=== PATIENT | female | born 2000 | race Caucasian/White ===

== ENCOUNTER 2023-03-01 17:12 | Emergency (ER) | payer OTHER, SELFPAY ==
[2023-03-01 17:20] VITALS: BP 131/76; PULSE 92; RESP 18; TEMP 37.1; O2SAT 100
--- NOTE | 2023-03-01 17:31 | ED.ABDPAIN ---
HPI - Abdominal Pain General Stated Complaint: Abdomina Pain Time Seen by Provider: 03/01/23 17:31 Source: patient Mode of arrival: ambulatory Limitations: no limitations History of Present Illness HPI narrative: 23 yo F with no significant medical hx presents with c/o left lower ABD pain since yesterday. c/o nausea. No urinary symptoms. Having normal BMs. Last menstrual period Jul 2022. Periods have been abnormal. States pain getting progressively worse. Was told by telehealth nurse to go to an to rule out ruptures ovarian cyst. Reports hx of R ovarian cyst approx. 5 years ago. All systems reviewed and negative except as noted above. Related Data Home Medications Medication Instructions Recorded Confirmed No Home Medications 03/01/23 03/01/23 Allergies Allergy/AdvReac Type Severity Reaction Status Date / Time iohexol Allergy Intermediate Hives Verified 03/01/23 17:36 [From contrast - CT, X-RAY] Review of Systems Review of Systems: CONSTITUTIONAL: Denies fever, chills, or sweats. EYES: Denies visual changes, redness, or discharge. ENT: Denies rhinorrhea, congestion, sore throat, or otalgia. CARDIOVASCULAR: Denies chest pain, palpitations, or edema. RESPIRATORY: Denies cough or dyspnea. GASTROINTESTINAL: Reports left lower abdominal pain, nausea. Denies vomiting, or diarrhea. GENITOURINARY: Denies dysuria or hematuria. SKIN: Denies rash or itching. MUSCULOSKELETAL: Denies back pain, joint pain, or myalgia. NEUROLOGIC: Denies headache, numbness, or weakness. PSYCHIATRIC: Denies anxiety or depression. All other systems reviewed are negative, except as documented in HPI. PMFSH Comments At time of signature, agree with nursing past medical, surgical, social and family history. There is no relevant family history pertinent to the presenting complaint. Exam Narrative: GENERAL: This is a well-nourished, well-developed patient, in no apparent distress. HEAD: normocephalic, atraumatic. EYES: PERRL. Sclera clear/white. Vision is grossly intact. EARS: External ears normal NOSE: External nose normal NECK: Neck supple, non-tender without lymphadenopathy, masses or thyromegaly. CARDIOVASCULAR: Regular rate and rhythm without murmurs, gallops, or rubs. RESPIRATORY: Clear to auscultation. Breath sounds equal bilaterally. No wheezes, rales, or rhonchi. GASTROINTESTINAL: Abdomen soft, nondistended. Tenderness to left lower quadrant on palpation. Bowel sounds are active. No hepato-splenomegaly, or palpable masses. No guarding. SKIN: warm, Dry, intact with no suspicious lesions or rash, good texture and turgor. NEURO: awake, alert, and oriented to person, place and time. There were no obvious focal neurologic abnormalities. EXTREMITIES: No joint tenderness, effusion, or edema noted. Course Course Level of Care: Express Care Visit Vital Signs Vital signs: Vital Signs Temperature 37.1 C 03/01/23 17:20 Pulse Rate 92 03/01/23 17:20 Respiratory Rate 18 03/01/23 17:20 Blood Pressure 131/76 03/01/23 17:20 Pulse Oximetry 100 03/01/23 17:20 Oxygen Delivery Room Air 03/01/23 17:20 Temperature 37.1 C 03/01/23 17:20 Pulse Rate 92 03/01/23 17:20 Respiratory Rate 18 03/01/23 17:20 Blood Pressure 131/76 03/01/23 17:20 Pulse Oximetry 100 03/01/23 17:20 Oxygen Delivery Room Air 03/01/23 17:20 Reviewed MDM - Abdominal Pain MDM Narrative Medical decision making narrative: Recommend patient transfer to ER for imaging lower abdominal pain to further evaluate her pain. Patient does not want to go to ER at this time. States she wants to go home and talk with her parents about going. Reports history of ruptured ovarian cyst approximately 5 years ago and does not feel that she needs to go to the ER if this is what is happening again. Discussed risks with patient. Patient is aware of diagnosis, understands and agrees to treatment plan. Anticipatory guidance given. Taylor
== END 2023-03-01 17:45 | disposition left against medical advice (07) ==
PROVIDERS: Emergency Provider Nurse Practitioner Family
DX: R10.32 Left lower quadrant pain (principal)
CPT/HCPCS: 81003; 81025; 99202; G0463

== ENCOUNTER 2023-12-16 11:52 | Emergency (ER) | payer BC, SELFPAY ==
[2023-12-16 12:13] VITALS: BP 106/83; PULSE 97; RESP 16; TEMP 37; O2SAT 100
--- NOTE | 2023-12-16 13:09 | ED.URI ---
HPI - URI/Sore Throat General Chief Complaint: Upper Respiratory Infection Stated Complaint: Flu Test Time Seen by Provider: 12/16/23 13:01 Source: patient and RN notes reviewed Mode of arrival: ambulatory Limitations: no limitations History of Present Illness HPI Narrative: Patient presents today complaining of 3 day history of congestion, rhinorrhea, sore throat, dry cough, fatigue. Denies fever, shortness of breath. She has tried DayQuil without relief. Denies known sick contacts. She is a dental hygienist. No history of asthma or COPD. She is a nonsmoker. Related Data Home Medications Medication Instructions Recorded Confirmed No Home Medications 03/01/23 12/16/23 Allergies Allergy/AdvReac Type Severity Reaction Status Date / Time iohexol Allergy Intermediate Hives Verified 12/16/23 12:24 [From contrast - CT, X-RAY] Review of Systems Review of Systems: CONSTITUTIONAL: Denies body aches, fever, chills, or sweats.+ fatigue EYES: Denies visual changes, redness, or discharge. ENT: + rhinorrhea, congestion, sore throat CARDIOVASCULAR: Denies chest pain, palpitations, or edema. RESPIRATORY: Denies dyspnea.+ cough GASTROINTESTINAL: Denies abdominal pain, nausea, vomiting, or diarrhea. GENITOURINARY: Denies dysuria or hematuria. SKIN: Denies rash, itching, or wounds. MUSCULOSKELETAL: Denies back pain, joint pain, or myalgia. NEUROLOGIC: Denies headache, numbness, tingling, or weakness. PSYCH: Denies depression or anxiety. [facility] Surgical History Surgical History (Updated 12/16/23 @ 13:10 by Tiffany Smith, [facility], ) Hx of tonsillectomy Comments At time of signature, I have reviewed and agree with nursing past medical, surgical, social and family history unless otherwise noted. Please see nursing chart for further information. There is no relevant family history pertinent to the presenting complaint Exam Narrative: GENERAL: Mildly ill-appearing, well-nourished, and in no acute distress. HEAD: Normocephalic, atraumatic. EYES: EOMI. No redness or drainage. Conjunctivae normal. ENT: Mucous membranes pink and moist. Nares congested with rhinorrhea. TMs normal bilaterally. Throat mildly erythematous without edema or exudate. Uvula midline. NECK: Normal AROM. Supple. No lymphadenopathy. CHEST: No respiratory distress. Clear to auscultation. HEART: Regular rate and rhythm. No murmur appreciated. EXTREMITIES: Normal range of motion. No edema. SKIN: Warm, dry, no rash. Capillary refill normal. Normal skin turgor. NEURO: No focal deficits. Alert and oriented x3. Gait steady. PSYCH: Normal affect. No signs of depression or anxiety. Course Course Level of Care: Express Care Visit Vital Signs Vital signs: Vital Signs Temperature 98.6 F 12/16/23 12:13 Pulse Rate 97 12/16/23 12:13 Respiratory Rate 16 12/16/23 12:13 Blood Pressure 106/83 12/16/23 12:13 Pulse Oximetry 100 12/16/23 12:13 Temperature 98.6 F 12/16/23 12:13 Pulse Rate 97 12/16/23 12:13 Respiratory Rate 16 12/16/23 12:13 Blood Pressure 106/83 12/16/23 12:13 Pulse Oximetry 100 12/16/23 12:13 Reviewed MDM - URI/Sore Throat MDM Narrative Medical decision making narrative: All testing negative. Symptoms likely viral in etiology. Discussed [id number] medication and duration of illness. No prescription medications indicated at time. Anticipatory guidance given. Differential Diagnosis Differential diagnosis: Likely upper respiratory infection, sinusitis, viral infection, influenza, pharyngitis and other (Strep throat, COVID) Lab Data Attestation: I reviewed the patient's lab results. Lab results narrative: COVID negative Labs: Influenza A Screen Negative Reference Range: Negative Influenza B Screen Negative Reference Range: Negative Strep Screen
== END 2023-12-16 13:16 | disposition home or self-care (01) ==
PROVIDERS: Emergency Provider Nurse Practitioner
DX: J06.9 Acute upper respiratory infection, unspecified (principal); Z20.822 Contact with and (suspected) exposure to COVID-19
CPT/HCPCS: 87081; 87426; 87804; 87880; 99213; G0463